=== PATIENT | male | born 1955 | race Caucasian/White ===

== ENCOUNTER 2020-12-17 00:10 | Emergency (ER) | payer BC, MEDICARE ==
[2020-12-17] MEDS ORDERED: Lidocaine 1% (PF) 30 ML VIAL ONE (00:31)
[2020-12-17] MEDS ORDERED: Boostrix 0.5 ML (Tdap) VIAL ONE (00:34)
[2020-12-17] MEDS ORDERED: Bacitracin 1 PK ONE (00:58)
== END 2020-12-17 01:10 | disposition home or self-care (01) ==
LOC: NAV ERS 00:10
DX: S51.812A Laceration without foreign body of left forearm, initial encounter (principal); E11.9 Type 2 diabetes mellitus without complications; K21.9 Gastro-esophageal reflux disease without esophagitis; E78.5 Hyperlipidemia, unspecified; I10 Essential (primary) hypertension; F17.290 Nicotine dependence, other tobacco product, uncomplicated; Z79.84 Long term (current) use of oral hypoglycemic drugs; Z79.899 Other long term (current) drug therapy; W18.30XA Fall on same level, unspecified, initial encounter
CPT/HCPCS: 12002; 90471; 90715; J2001